=== PATIENT | male | born 1985 | race Hispanic/Latino ===

== ENCOUNTER → 2023-09-13 09:49 | Outpatient (REF) | payer OTHER, SELFPAY ==
[2023-09-13 10:54] LABS: % Eosinophils 2.7 % (0-6); % Immature Granulocytes 0.3 % (0-0.5); % Monocytes 8.4 % (1.7-9.3); % Neutrophils 47.6 % (42.2-75.2); Absolute Basophils 0.1 10^3/uL (0-0.2); Absolute Eosinophils 0.2 10^3/uL (0-0.7); Absolute Lymphocytes 2.3 10^3/uL (1.2-3.4); Absolute Monocytes 0.5 10^3/uL (0.1-0.6); Absolute Neutrophils 2.8 10^3/uL (1.4-6.5); Hematocrit 43.9 % (39.0-52.0); Mean Corp Hgb Conc. 36.4 g/dL (33.0-37.0); Mean Corpuscular Hgb 31.3 pg (27.0-31.0); Mean Corpuscular Volume 85.9 fL (80.0-94.0); Mean Platelet Volume 9.8 fL (7.4-10.4); Nucleated Red Blood Cells % 0 % (-); Platelet Count 220 10^3/uL (130-400); Red Blood Cell Count 5.11 10^6/uL (4.70-6.10); White Blood Cell Count 5.9 10^3/uL (4.8-10.8)
[2023-09-13 12:08] LABS: ALT (SGPT) 59 U/L (0-50); AST (SGOT) 39 U/L (17-59); Albumin 4.8 g/dl (3.5-5.0); Alkaline Phosphatase 76 U/L (38-126); Blood Urea Nitrogen 12 mg/dl (9-20); Calcium 9.4 mg/dl (8.4-10.2); Carbon Dioxide 25 mmol/L (22-30); Chloride 104 mmol/L (98-107); Glucose 91 mg/dl (70-99); Potassium 4.6 mmol/L (3.5-5.1); Sodium 138 mmol/L (135-145); Total Bilirubin 1.4 mg/dl (0.2-1.3); Total Protein 7.8 g/dl (6.3-8.2); eGFR > 60.00
[2023-09-13 13:14] LABS: Glycohemoglobin (HgbA1c) 5.7 % (4.0-5.6)
== END ==
LOC: REG 09:49
PROVIDERS: ATTENDING PHYSICIAN Internal Medicine
DX: K62.5 Hemorrhage of anus and rectum (principal); R73.03 Prediabetes
CPT/HCPCS: 36415; 80053; 83036; 85025

== ENCOUNTER 2023-10-26 20:01 | Emergency (ER) | payer SELFPAY ==
[2023-10-26 20:03] VITALS: BP 137/93
--- NOTE | 2023-10-26 20:24 | ED.GENMED ---
History of Present Illness
General
Chief Complaint: Skin Problem
Source: patient and spouse
Exam Limitations: none
Time Seen by Provider: 10/26/23 20:11
Nursing documentation reviewed up to this point in time: agreed with
History of Present Illness
History of Present Illness:
38-year-old male with no reported chronic medical issues who presents to the emergency room for evaluation of a rash. Patient reports that he started with a rash on his left lower leg about 2 months ago�he says primarily red and pruritic and
raised. He says that he has been following at the [facility] and was seen and prescribed topical triamcinolone cream which he has been using without improvement. He says it seems to be more red and painful recently. He also has
developed a similar area on the left forearm that is pruritic and raised. Decided to come to the emergency room to be evaluated. 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 He denies any oral lesions or sores. No fevers or
chills. Denies any other complaints.
Past History
Past History
ED Past Medical History: None
ED Past Surgical History: None
Social History
Tobacco: Non-smoker
Alcohol: Occasional
Personal:
Living: with family
Employment: Employed
Family History
Family History: Other
Review of Systems
Review of Systems
All Other Systems: ROS reviewed and negative except as documented in HPI and ROS
Constitutional: Denies fever or chills
Skin: Reports itching and rash
Phy Exam
Physical Exam
Physical Exam:
General: Well appearing and non-toxic
HEENT: protecting airway; no mucous membrane lesions
Neck: appears supple
CV: No evidence of cyanosis
Resp: No accessory muscle use
Abd: Non-distended
Extremities: No deformities
Neuro: Alert
Psych: Normal affect
Skin: Patient has a small patch of scattered pustules vaguely linear appearance on the left lower leg raised somewhat scaly with no warmth or tenderness; he has another area of scattered erythematous nodules on the left forearm again linear
appearing but no pustules or vesicles noted; he has a dry scaly skin colored rash on the posterior right thigh which is not erythematous or tender to the touch
Scores
Heart Failure Risk
Heart Failure Risk Score: Not Applicable
Heart Score for Chest Pain Patients
STEMI patient?: Not applicable
Withdrawal Assessment of Alcohol
Withdrawal Assessment Completed?: Not applicable
Course
Orders/Labs/Results
Orders:
Orders
10/26/23 20:21
Cephalexin Monohydrate [Keflex] 500 mg PO NOW STA
Prednisone [Deltasone] 50 mg PO NOW STA
Vital Signs
Initial and Last Documented VS:
Initial Vital Signs
Temp Pulse Resp BP Pulse Ox
37.0 C 75 18 137/93 96
10/26/23 20:03 10/26/23 20:03 10/26/23 20:03 10/26/23 20:03 10/26/23 20:03
Last Documented Vital Signs
Temp Pulse Resp BP Pulse Ox
37.0 C 75 18 137/93 96
10/26/23 20:03 10/26/23 20:03 10/26/23 20:03 10/26/23 20:03 10/26/23 20:03
MDM/Problems Addressed
Differential Diagnosis Includes:
Poison gui, atopic dermatitis/eczema, cellulitis
MDM/Problems Addressed:
38-year-old male presents for evaluation of rash on the left leg, right thigh, left forearm. Has been ongoing for the past 2 months on the left leg not improving with triamcinolone and now developing additional lesions. He does work as a
service writer advisor. Exam as above. Suspect likely contact dermatitis possibly poison gui versus atopic dermatitis. He does report that the area on his left lower leg is somewhat painful recently and it is more erythematous than the rest certainly could
have superimposed cellulitis. Will cover with Keflex but plan to treat with oral steroid taper. Will have him follow-up as an outpatient in [facility]; advised to seek dermatologic referral via clinic if not improving. All questions
answered.
*Pulse Oximetry
Patient hypoxic: no
*Critical Care Note
Total Time (30-74mins, 75-104mins- exclusive of procedures): Not Applicable
Data Reviewed
Source: patient and spouse
ED Attending Note
-
Portions of this chart may have been created with voice recognition software.� Occasional wrong word or��sound alike� substitutions may have occurred due to the inherent limitations of voice recognition software.
Discharge Plan
Departure
Patient Disposition: Home (Routine Discharge)
Date of Disposition: 10/26/23
Time of Disposition: 20:22
Patient with high blood pressure during this ER visit?: No
Discharge Problem:
Dermatitis
Instructions: Skin Rash ED
Prescriptions:
New
cephalexin 500 mg tablet
500 mg PO QID 7 Days Qty: 28 0RF
prednisone 10 mg Tablet
See Rx Instructions .ROUTE .COMPLEX Qty: 30 0RF
Rx Instructions:
Take By Mouth:
40 mg daily x3 days, 30 mg daily x3 days,
20 mg daily x3 days, 10 mg daily x3 days.
No Action
tamsulosin 0.4 MG capsule
0.4 mg PO DAILY Qty: 7 0RF
diclofenac sodium 75 MG tablet,delayed release (DR/EC)
75 mg PO BID Qty: 10 0RF
Activity Restrictions/Additional Instructions:
Thank you for visiting the Emergency Department at [facility].
1. Please schedule a follow up appointment as directed. Call first thing tomorrow morning to make an appointment.
2. If indicated, please take your medications as instructed and indicated on discharge paperwork.
3. If any of your symptoms do not improve, or persist, or become more severe within 6-12 hours, please return to the emergency department for further care.
4. Please return to the emergency department if you develop a headache, neck pain/stiffness, fever greater than 100.4F, chest pain, shortness of breath, persistent nausea, vomiting, slurred speech, difficulty walking, numbness/tingling, weakness,
signs of infection or any other symptoms that are worrisome to you.
Please call [phone] if you have any questions.
Interventions
Interventions:
*Risk Screen - Suicide Last Done: 10/26/23 20:03
*General Assessment Last Done: 10/26/23 20:03
*Neglect/Abuse Screening Last Done: 10/26/23 20:03
Discharge Date and Time
Print Language: KAZAKH
[2023-10-26] MEDS: DELTASONE 50 MG PO (20:31)
[2023-10-26] MEDS: KEFLEX 500 MG PO (20:31)
== END 2023-10-26 20:42 | disposition home or self-care (01) ==
LOC: EMR 20:01
PROVIDERS: EMERGENCY PHYSICIAN Emergency Medicine
DX: L30.9 Dermatitis, unspecified (principal)
CPT/HCPCS: 99283

== ENCOUNTER 2023-12-19 16:16 | Emergency (ER) | payer SELFPAY ==
[2023-12-19 16:17] VITALS: BP 129/92
--- NOTE | 2023-12-19 16:59 | ED.MUSCINJ ---
HPI-Injury
General
Chief Complaint: Extremity Pain (non-traumatic)
Source: patient
Exam Limitations: none
Time Seen by Provider: 12/19/23 16:48
Nursing documentation reviewed up to this point in time: agreed with
History of Present Illness-Injury
Is this injury a work related problem?: No
Is pt an associate of [facility]/[place]?: No
Initial Injury comments:
Rolled ankle falling down steps. Denies hitting his head. No LOC. COmplains of pain to right lat ankle. Injury occurred just study specialist
Past History
Past History
ED Past Medical History: None
ED Past Surgical History: None
Social History
Tobacco: Non-smoker
Alcohol: Occasional
Personal:
Living: with family
Employment: Employed
Family History
Family History: Other
Review of Systems
Review of Systems
Allergies reviewed?: Yes
All Other Systems: ROS reviewed and negative except as documented in HPI and ROS
Constitutional: Reports no symptoms
Musculoskeletal: Reports joint pain (pain to right lat ankle)
Skin: Reports no symptoms
Neurological: Reports no symptoms
Psychiatric: Reports no symptoms
Musculoskeletal Injury Exam
Musculoskeletal Injury Exam
Right Lateral Ankle:
Pain with Movement?: Moderate
Tender to palpation?: Moderate
Soft tissue swelling?: Moderate
External deformity and angulation?: None
Joint effusion?: None
Contusion?: Moderate
Hematoma-local bleeding into tissue?: None
Strain- Sprain- Tear (Connective tissue injury)?: Moderate
Crepitus with movement?: No
Joint instability?: No
Malalignment/deformity?: No
Range of motion: Limited
Distal skin color and temperature: normal-warm & good color
Capillary Refill: normal
Normal distal neurovascular exam?: Yes
Peripheral Pulses: posterior tibial (right): 3+ and dorsalis pedis (right): 3+
Phy Exam
General Physical Exam
General Presentation: well appearing and no apparent distress
General age: appears stated age
General Skin: warm and dry
General Habitus: normal
General Mental: alert
General Hydration: appears well hydrated
Musculoskeletal Exam
Musculoskeletal Exam: neuro vasc intact and other (Achilles intact. No tenderness base of 5th, proximal tib/fib)
Skin Exam
Skin Exam: normal color and warm/dry
Psychiatric Exam
Psychiatric Exam: normal mood/affect
Injury Course
Orders/Labs/Results
Orders:
Orders
12/19/23 16:16
Ankle, Right 3 view CR [CR Ankle - Right Min 3 Views *] Urgent
Comment:
Reason For Exam: pain
12/19/23 16:54
Crutches-Treatment ONCE
Ortho Boot Right- Treatment ONCE
Short or tall?: Tall
Hydrocodone 5/APAP 325 [[place] 5/325] 1 tablet PO NOW STA
*Radiology
Radiology exam reviewed: radiology read reviewed
*Pulse Oximetry
Patient hypoxic: no
*Critical Care Note
Total Time (30-74mins, 75-104mins- exclusive of procedures): Not Applicable
ED Attending Note
-
Portions of this chart may have been created with voice recognition software.� Occasional wrong word or��sound alike� substitutions may have occurred due to the inherent limitations of voice recognition software.
Discharge Plan
Departure
Patient Disposition: Home (Routine Discharge)
Date of Disposition: 12/19/23
Time of Disposition: 16:55
Patient with high blood pressure during this ER visit?: No
Condition: Good
Covid-19: Not Applicable
Discharge Problem:
Ankle fracture
Instructions: Ankle Fracture ED
Prescriptions:
New
hydrocodone-acetaminophen 5-325 mg tablet
1 tab PO Q4H PRN (Reason: Pain) Qty: 10 0RF
No Action
tamsulosin 0.4 MG capsule
0.4 mg PO DAILY Qty: 7 0RF
diclofenac sodium 75 MG tablet,delayed release (DR/EC)
75 mg PO BID Qty: 10 0RF
cephalexin 500 mg tablet
500 mg PO QID 7 Days Qty: 28 0RF
prednisone 10 mg Tablet
See Rx Instructions .ROUTE .COMPLEX Qty: 30 0RF
Rx Instructions:
Take By Mouth:
40 mg daily x3 days, 30 mg daily x3 days,
20 mg daily x3 days, 10 mg daily x3 days.
Referrals:
[facility] [Outside] - Tomorrow
Mata Campos MD [Active] -
Activity Restrictions/Additional Instructions:
Follow up with the [facility] for referral to orthopedic provider. You will need to see the orthopedist this week.
Interventions
Interventions:
*Risk Screen - Suicide Last Done: 12/19/23 16:17
*General Assessment Last Done: 12/19/23 16:17
*Neglect/Abuse Screening Last Done: 12/19/23 17:24
ED- Fall Risk Assessment Last Done: 12/19/23 16:17
*ED COVID-19 Vaccine History Last Done: 12/19/23 16:17
*Nursing Disposition Last Done: 12/19/23 17:24
ED-Skin Assessment Last Done: 12/19/23 16:41
ED-Musculoskeletal Assessment Last Done: 12/19/23 16:41
Discharge Date and Time
Discharge Date/Time: 12/19/23 17:26
Print Language: URDU
[2023-12-19] MEDS: NORCO 5/325 1 TABLET PO (17:18)
[2023-12-19 17:24] VITALS: BP 144/80
== END 2023-12-19 17:26 | disposition home or self-care (01) ==
LOC: EMR 16:16
PROVIDERS: EMERGENCY PHYSICIAN Emergency Medicine; FAMILY PHYSICIAN Nurse Practitioner Adult Health
DX: S82.891A Other fracture of right lower leg, initial encounter for closed fracture (principal); W10.9XXA Fall (on) (from) unspecified stairs and steps, initial encounter
CPT/HCPCS: 99283; 73610

== ENCOUNTER 2023-12-31 06:25 | Day surgery (SDC) | payer OTHER, SELFPAY ==
[2023-12-31] VITALS (10 sets, daily range): BP systolic 115–140; BP diastolic 72–94; BMI 31.0
[2023-12-31] MEDS: TYLENOL 1000 MG PO (10:10)
[2023-12-31] MEDS: CELEBREX 200 MG PO (10:10)
[2023-12-31] MEDS: NORMOSOL-R/PLASMALYTE-A 1000 IV (10:21)
[2023-12-31] MEDS: DILAUDID 0.5 MG IV ×2 (14:37→14:50)
[2023-12-31] MEDS: ROXICODONE 5 MG PO (16:26)
== END 2023-12-31 16:45 | disposition home or self-care (01) ==
LOC: SDS 06:25
PROVIDERS: ATTENDING PHYSICIAN Student in an Organized Health Care Education/Training Program; FAMILY PHYSICIAN Internal Medicine
PROC: 0QSG04Z Reposition Right Tibia with Internal Fixation Device, Open Approach (ICD-10-PCS; 2023-12-31)
PROC: 0QSJ04Z Reposition Right Fibula with Internal Fixation Device, Open Approach (ICD-10-PCS; 2023-12-31)
DX: S82.841A Displaced bimalleolar fracture of right lower leg, initial encounter for closed fracture (principal); X58.XXXA Exposure to other specified factors, initial encounter
CPT/HCPCS: 27814; 73610; 76000; C1713

== ENCOUNTER 2024-03-04 17:07 | Outpatient (RCR) | payer OTHER, SELFPAY | END 2024-03-04 23:59 | disposition home or self-care (01) | LOC: RPT 17:07 | PROVIDERS: ATTENDING PHYSICIAN Student in an Organized Health Care Education/Training Program; FAMILY PHYSICIAN Nurse Practitioner Adult Health | DX: S82.831D Other fracture of upper and lower end of right fibula, subsequent encounter for closed fracture with routine healing (principal); Z73.6 Limitation of activities due to disability | CPT/HCPCS: 97010; 97110; 97112; 97140; 97161 ==

== ENCOUNTER 2024-03-27 17:10 | Outpatient (RCR) | payer OTHER, SELFPAY | END 2024-03-27 23:59 | disposition home or self-care (01) | LOC: RPT 17:10 | PROVIDERS: ATTENDING PHYSICIAN Student in an Organized Health Care Education/Training Program; FAMILY PHYSICIAN Nurse Practitioner Adult Health | DX: S82.831D Other fracture of upper and lower end of right fibula, subsequent encounter for closed fracture with routine healing (principal); Z73.6 Limitation of activities due to disability | CPT/HCPCS: 97010; 97110; 97112; 97140 ==

== ENCOUNTER 2024-05-08 16:51 | Outpatient (RCR) | payer OTHER, SELFPAY | END 2024-05-08 23:59 | disposition home or self-care (01) | LOC: RPT 16:51 | PROVIDERS: ATTENDING PHYSICIAN Student in an Organized Health Care Education/Training Program; FAMILY PHYSICIAN Nurse Practitioner Adult Health | DX: S82.831D Other fracture of upper and lower end of right fibula, subsequent encounter for closed fracture with routine healing (principal); Z73.6 Limitation of activities due to disability | CPT/HCPCS: 97110; 97112; 97140 ==

== ENCOUNTER → 2024-06-05 06:43 | Outpatient (REF) | payer OTHER, SELFPAY | LOC: PAVMRI 06:43 | PROVIDERS: ATTENDING PHYSICIAN Student in an Organized Health Care Education/Training Program; FAMILY PHYSICIAN Nurse Practitioner Adult Health | DX: M25.571 Pain in right ankle and joints of right foot (principal) | CPT/HCPCS: 73721 ==

== ENCOUNTER 2024-06-05 17:13 | Outpatient (RCR) | payer OTHER, SELFPAY | END 2024-06-05 23:59 | disposition home or self-care (01) | LOC: RPT 17:13 | PROVIDERS: ATTENDING PHYSICIAN Student in an Organized Health Care Education/Training Program; FAMILY PHYSICIAN Nurse Practitioner Adult Health | DX: S82.831D Other fracture of upper and lower end of right fibula, subsequent encounter for closed fracture with routine healing (principal); X58.XXXD Exposure to other specified factors, subsequent encounter; Z73.6 Limitation of activities due to disability | CPT/HCPCS: 97110; 97112 ==

== ENCOUNTER 2024-07-03 18:52 | Outpatient (RCR) | payer OTHER, SELFPAY | END 2024-07-03 23:59 | disposition home or self-care (01) | LOC: RPT 18:52 | PROVIDERS: ATTENDING PHYSICIAN Student in an Organized Health Care Education/Training Program; FAMILY PHYSICIAN Nurse Practitioner Adult Health | DX: S82.831D Other fracture of upper and lower end of right fibula, subsequent encounter for closed fracture with routine healing (principal); X58.XXXD Exposure to other specified factors, subsequent encounter; Z73.6 Limitation of activities due to disability; R26.2 Difficulty in walking, not elsewhere classified; M62.81 Muscle weakness (generalized) | CPT/HCPCS: 97110; 97112 ==

== ENCOUNTER 2024-08-28 17:00 | Outpatient (RCR) | payer OTHER, SELFPAY | END 2024-08-28 23:59 | disposition home or self-care (01) | LOC: RPT 17:00 | PROVIDERS: ATTENDING PHYSICIAN Student in an Organized Health Care Education/Training Program; FAMILY PHYSICIAN Nurse Practitioner Adult Health | DX: Z47.89 Encounter for other orthopedic aftercare (principal); S82.831D Other fracture of upper and lower end of right fibula, subsequent encounter for closed fracture with routine healing; X58.XXXD Exposure to other specified factors, subsequent encounter; Z73.6 Limitation of activities due to disability; R26.2 Difficulty in walking, not elsewhere classified; M62.81 Muscle weakness (generalized) | CPT/HCPCS: 97010; 97110; 97112; 97140 ==

== ENCOUNTER 2024-09-10 18:57 | Outpatient (RCR) | payer OTHER, SELFPAY | END 2024-09-10 23:59 | disposition home or self-care (01) | LOC: RPT 18:57 | PROVIDERS: ATTENDING PHYSICIAN Student in an Organized Health Care Education/Training Program; FAMILY PHYSICIAN Nurse Practitioner Adult Health | DX: S82.831D Other fracture of upper and lower end of right fibula, subsequent encounter for closed fracture with routine healing (principal); X58.XXXD Exposure to other specified factors, subsequent encounter; Z73.6 Limitation of activities due to disability; R26.2 Difficulty in walking, not elsewhere classified; M62.81 Muscle weakness (generalized); Z47.89 Encounter for other orthopedic aftercare | CPT/HCPCS: 97110; 97112; 97140 ==

== ENCOUNTER 2024-09-25 11:59 | Emergency (ER) | payer SELFPAY ==
[2024-09-25 12:04] VITALS: BP 136/91
[2024-09-25 12:28] VITALS: BMI 37.0
--- NOTE | 2024-09-25 13:20 | ED.GENMED ---
History of Present Illness
General
Chief Complaint: Back Pain
Source: patient
Exam Limitations: none
Time Seen by Provider: 09/25/24 12:27
Nursing documentation reviewed up to this point in time: agreed with
History of Present Illness
History of Present Illness:
The patient is a 39-year-old male with a known history of kidney stones, presenting with abdominal pain. The pain began last night around 1 AM and radiates from one area to another. The patient describes the pain as severe, rated 10/10, and reports
associated diarrhea that began the same night. The patient denies numbness, weakness, nausea, or vomiting. The pain is similar to previous episodes of kidney stones. Ibuprofen was taken for pain relief, without significant improvement.
Past History
Past History
ED Past Medical History: None
ED Past Surgical History: None
Social History
Tobacco: Non-smoker
Alcohol: Occasional
Personal:
Living: with family
Employment: Employed
Family History
Family History: Other
Review of Systems
Review of Systems
Allergies reviewed?: Yes
All Other Systems: ROS reviewed and negative except as documented in HPI and ROS
Phy Exam
Physical Exam
Physical Exam:
GENERAL: Alert , in no apparent distress
EYE: pupils equal and reactive
NECK: Supple, no significant adenopathy.
ENT: o/p clr, mmm.
CARDIAC: Regular rate and rhythm .
LUNGS: Clear breath sounds bilaterally, no acute respiratory distress, no wheezes/rales/rhonchi
ABDOMEN: Soft, without focal tenderness, no r/g, no cvat
NEUROLOGICAL: Alert and oriented, no focal neuro deficits
SKIN: Warm and dry, skin intact.
MUSCULOSKELETAL: No edema, well perfused.
PSYCH: Normal and appropriate interaction.
Course
Orders/Labs/Results
Orders:
Orders
09/25/24 13:05
0.9% Sodium Chloride 1000 ml [Nss] 1,000 ml IV BOLUS
Ketorolac [Toradol] 15 mg IV NOW STA
09/25/24 13:06
CT Abd/pel Without Iv Or Oral Urgent
Comment:
Reason For Exam: left flank pain
09/25/24 13:30
Complete Blood Count/With Diff Urgent
Comprehensive Metabolic Panel Urgent
Urinalysis Reflex To Culture Urgent
Date Specimen was Collected: 09/25/24
Time Specimen was Collected: 13:24
Urine Microscopic Reflex Cult Urgent
09/25/24 15:46
Ketorolac [Toradol] 15 mg IV NOW STA
Tamsulosin [Flomax] 0.4 mg PO NOW STA
Abnormal Lab Results
09/25/24
13:30
MCH 31.5 H pg
(27.0-31.0)
Absolute Monos (auto) 0.7 H 10^3/uL
(0.1-0.6)
Monocytes % 10.4 H %
(1.7-9.3)
Glucose 119 H mg/dl
(70-99)
Total Bilirubin 2.0 H mg/dl
(0.2-1.3)
ALT 72 H U/L
(0-50)
Ur Occult Blood Reflex 1+ A
(Negative)
09/25/24 13:30
09/25/24 13:30
Vital Signs
Initial and Last Documented VS:
Initial Vital Signs
Temp Pulse Resp BP Pulse Ox
98.1 F 70 15 136/91 98
09/25/24 12:04 09/25/24 12:04 09/25/24 12:04 09/25/24 12:04 09/25/24 12:04
Last Documented Vital Signs
Temp Pulse Resp BP Pulse Ox
98.1 F 70 15 136/91 98
09/25/24 12:04 09/25/24 12:04 09/25/24 12:04 09/25/24 12:04 09/25/24 13:20
MDM/Problems Addressed
MDM/Problems Addressed:
The plan includes obtaining a CT scan to evaluate for kidney stones and ordering laboratory tests, including urinalysis. Pain management with medication will be administered to provide relief. Patient symptoms significantly proved after given
Toradol. Patient very comfortable here no vomiting. Labs without emergent findings normal renal function urinalysis without signs of infection. CT scan showing 6 mm proximal stone minimal hydro. Patient appears well for trial of passage given
information for urology follow-up and return precautions given.
*Pulse Oximetry
SaO2: 98
Oxygen Mode of Delivery: Room air
*Critical Care Note
Total Time (30-74mins, 75-104mins- exclusive of procedures): Not Applicable
ED Attending Note
-
Portions of this chart may have been created with voice recognition software.� Occasional wrong word or��sound alike� substitutions may have occurred due to the inherent limitations of voice recognition software.
Discharge Plan
Departure
Patient Disposition: Home (Routine Discharge)
Date of Disposition: 09/25/24
Time of Disposition: 15:55
Patient with high blood pressure during this ER visit?: No
Condition: Good
Covid-19: Not Applicable
Discharge Problem:
Calculus, ureteral
Instructions: Kidney stones in adults - ED discharge instructions
Prescriptions:
New
naproxen 500 mg tablet
500 mg PO BID PRN (Reason: Pain) Qty: 10 0RF
ondansetron 4 mg tablet,disintegrating
4 mg PO Q6H PRN (Reason: nausea and vomiting) Qty: 7 0RF
tamsulosin [Flomax] 0.4 mg capsule
0.4 mg PO HS Qty: 7 0RF
No Action
hydrocodone-acetaminophen 5-325 mg tablet
1 tab PO Q4H PRN (Reason: Pain) Qty: 10 0RF
Referrals:
Lukas Regan MD [Family Provider, Family Practice]
Daryn Mccarty MD [Active, Urology] - Follow up in 5-7 days
Activity Restrictions/Additional Instructions:
You came to the emergency department today with concerns of flank pain. You are found to have a kidney stone that is now in your ureter causing your symptoms. Please drink plenty of fluids and take the prescribed medications to help with passage.
Please urinate into a strainer to collect the stone. Please follow closely with urology within 1 week. Return for any worsening, new or concerning symptoms.
Interventions
Interventions:
*Risk Screen - Suicide Last Done: 09/25/24 12:04
*General Assessment Last Done: 09/25/24 12:04
*Neglect/Abuse Screening Last Done: 09/25/24 12:04
*ED COVID-19 Vaccine History Last Done: 09/25/24 12:04
ED-Musculoskeletal Assessment Last Done: 09/25/24 13:41
Discharge Date and Time
Print Language: UZBEK
[2024-09-25] MEDS: TORADOL 15 MG IV ×2 (13:36→15:55)
[2024-09-25] MEDS: NSS 1000 IV (13:36)
[2024-09-25 13:48] LABS: % Basophils 0.9 % (0-2); % Eosinophils 1.3 % (0-6); % Immature Granulocytes 0.4 % (0-0.5); % Monocytes 10.4 % (1.7-9.3); Absolute Basophils 0.1 10^3/uL (0-0.2); Absolute Eosinophils 0.1 10^3/uL (0-0.7); Absolute Lymphocytes 2.3 10^3/uL (1.2-3.4); Absolute Monocytes 0.7 10^3/uL (0.1-0.6); Absolute Neutrophils 3.9 10^3/uL (1.4-6.5); Hematocrit 41.9 % (39.0-52.0); Hemoglobin 15.4 g/dL (13.0-18.0); Mean Corp Hgb Conc. 36.8 g/dL (33.0-37.0); Mean Corpuscular Hgb 31.5 pg (27.0-31.0); Mean Corpuscular Volume 85.7 fL (80.0-94.0); Mean Platelet Volume 10.2 fL (7.4-10.4); Nucleated Red Blood Cells % 0 % (-); Platelet Count 192 10^3/uL (130-400); Red Blood Cell Count 4.89 10^6/uL (4.70-6.10); Red Cell Dist. Width 12.7 % (11.5-14.5)
[2024-09-25 13:56] LABS: Urine Albumin Negative (Neg - Trace); Urine Bilirubin Negative (Negative); Urine Character Clear (Clear); Urine Color Yellow; Urine Glucose Negative (Negative); Urine Ketone Negative (Negative); Urine Leukocyte Negative (Negative); Urine Nitrite Negative (Negative); Urine Occult Blood 1+ (Negative); Urine Specific Gravity 1.005 (<1.030); Urine Urobilinogen Negative (Neg - 1+); Urine pH 6.5 (5.0-9.0)
[2024-09-25 14:09] LABS: ALT (SGPT) 72 U/L (0-50); AST (SGOT) 40 U/L (17-59); Albumin 4.6 g/dl (3.5-5.0); Alkaline Phosphatase 61 U/L (38-126); Blood Urea Nitrogen 13 mg/dl (9-20); Calcium 9.4 mg/dl (8.4-10.2); Carbon Dioxide 22 mmol/L (22-30); Chloride 105 mmol/L (98-107); Estimated Creatinine Clearance > 125 ml/min; Glucose 119 mg/dl (70-99); Potassium 4.1 mmol/L (3.5-5.1); Sodium 135 mmol/L (135-145); Total Protein 7.3 g/dl (6.3-8.2); eGFR > 60.00
[2024-09-25 14:36] LABS: Urine Amorphous Seen
[2024-09-25 14:38] LABS: Urine Red Blood Cell 0-2 /HPF (0-2); Urine White Cell 0-2 /HPF (0-5)
[2024-09-25] MEDS: FLOMAX 0.4 MG PO (15:54)
== END 2024-09-25 16:07 | disposition home or self-care (01) ==
LOC: EMR 11:59
PROVIDERS: Physician Assistant; EMERGENCY PHYSICIAN Emergency Medicine; FAMILY PHYSICIAN Family Medicine
DX: R10.9 Unspecified abdominal pain (principal); N13.2 Hydronephrosis with renal and ureteral calculous obstruction; Z87.442 Personal history of urinary calculi
CPT/HCPCS: 99284; 96374; 96376; 96361; 74176; 80053; 81003; 81015; 85025

== ENCOUNTER 2024-09-26 15:23 | Inpatient (IN) | payer OTHER, SELFPAY ==
[2024-09-26 12:59] VITALS: BP 130/83
[2024-09-26 13:15] LABS: Urine Albumin Negative (Neg - Trace); Urine Bilirubin Negative (Negative); Urine Character Clear (Clear); Urine Color Yellow; Urine Glucose Negative (Negative); Urine Ketone Negative (Negative); Urine Leukocyte Negative (Negative); Urine Nitrite Negative (Negative); Urine Occult Blood 3+ (Negative); Urine Urobilinogen Negative (Neg - 1+)
--- NOTE | 2024-09-26 13:30 | EDRN ---
Pt ambulated to BR and used strainer when voiding.
[2024-09-26 13:43] VITALS: BMI 30.6
--- NOTE | 2024-09-26 13:47 | EDRN ---
Pt to BR again at this time. Pt states no nausea now but did have nausea this am.
[2024-09-26 13:55] LABS: Urine Red Blood Cell 0-2 /HPF (0-2); Urine Squamous Cell 0-2 /LPF (Few); Urine White Cell 0-2 /HPF (0-5)
--- NOTE | 2024-09-26 13:59 | ED.GENMED ---
History of Present Illness
General
Chief Complaint: Flank Pain
Time Seen by Provider: 09/26/24 13:49
History of Present Illness
History of Present Illness:
39-year-old male with history of kidney stones presenting to the emergency department with persistent left-sided abdominal pain. Patient was seen yesterday, diagnosed with a 6 mm proximal left ureteral stone. Patient was sent home with pain
medication, however notes that his pain is not improving, nausea. Notes history of kidney stones in the past, have passed on their own. Denies any significant urinary complaints or hematuria. Denies chest pain or difficulty breathing. Notes some
chills, denies fever. Denies additional acute medical complaints.
Past History
Past History
ED Past Medical History: None
ED Past Surgical History: None
Social History
Tobacco: Non-smoker
Alcohol: Occasional
Personal:
Living: with family
Employment: Employed
Family History
Family History: Other
Phy Exam
Physical Exam
Physical Exam:
General: Well-appearing, no clinical signs of dehydration, nontoxic and in no acute distress
HEENT: protecting airway
Neck: appears supple
CV: Normal heart rate, regular rhythm
Resp: No accessory muscle use, no increased work of breathing, lungs clear to auscultation bilaterally
Abd: Soft and non-distended, mild tenderness to the left lower quadrant without rebound or guarding
Extremities: No deformities, no swelling
Neuro: alert, no focal neurologic deficit
: deferred
Rectal: deferred
Psych: Normal affect
Skin: Intact
Course
Orders/Labs/Results
Orders:
Orders
09/26/24 13:04
UA Reflex to Culture [Urinalysis Reflex To Culture] Urgent
Date Specimen was Collected: 09/26/24
Time Specimen was Collected: 13:03
Urine Microscopic Reflex Cult Urgent
09/26/24 13:54
IV Insert/Care/Rem.- Treatment PRN
09/26/24 13:55
Complete Blood Count/With Diff Urgent
Comprehensive Metabolic Panel Urgent
09/26/24 14:05
0.9% Sodium Chloride 1000 ml [Nss] 1,000 ml IV BOLUS
Morphine Sulfate 4 mg IV NOW STA
Ondansetron Injectable [Zofran] 4 mg IV NOW STA
09/26/24 14:46
Urine Culture Urgent
CHERYL Source: Urine
Specimen Description:
CefTRIAXone [Rocephin] 1,000 mg IV NOW STA
09/26/24 15:00
Blood Culture Q30M
CHERYL Source: Blood/Venous
Specimen Description:
09/26/24 15:30
Blood Culture Q30M
CHERYL Source: Blood/Venous
Specimen Description:
Abnormal Lab Results
09/26/24 09/26/24
13:04 13:55
WBC 10.9 H 10^3/uL
(4.8-10.8)
Absolute Neuts (auto) 8.3 H 10^3/uL
(1.4-6.5)
Absolute Monos (auto) 1.1 H 10^3/uL
(0.1-0.6)
Neutrophils % 76.0 H %
(42.2-75.2)
Lymphocytes % 12.6 L %
(20.5-51.1)
Monocytes % 10.2 H %
(1.7-9.3)
Sodium 133 L mmol/L
(135-145)
Total Bilirubin 3.2 H D mg/dl
(0.2-1.3)
ALT 63 H U/L
(0-50)
Ur Occult Blood Reflex 3+ A
(Negative)
09/26/24 13:55
09/26/24 13:55
Vital Signs
Initial and Last Documented VS:
Initial Vital Signs
Temp Pulse Resp BP Pulse Ox
99.5 F 90 20 130/83 96
09/26/24 12:59 09/26/24 12:59 09/26/24 12:59 09/26/24 12:59 09/26/24 12:59
Last Documented Vital Signs
Temp Pulse Resp BP Pulse Ox
99 F 90 20 130/83 96
09/26/24 14:05 09/26/24 12:59 09/26/24 12:59 09/26/24 12:59 09/26/24 14:20
MDM/Problems Addressed
MDM/Problems Addressed:
39-year-old male with past medical history of kidney stones presenting to the emergency department for left-sided abdominal pain with known kidney stone. Vital signs on arrival are normal.
On exam patient resting comfortably, no acute distress or discomfort. Benign cardiac and pulmonary exam. On abdominal exam, focal tenderness to the left lower quadrant without rebound or guarding. On review of EMR from patient's visit yesterday,
noted to have a 6 mm stone at the proximal left ureter. Suspect this to be etiology of pain. Will repeat laboratory analysis to ensure no worsening renal function or increasing leukocytosis. Will discuss with urology. Will keep patient
comfortable with IV fluids, morphine, Zofran
14:50 -patient's labs do show elevation of WBC at 10.9, increased yesterday from 7.0. Urine without significant sign of infection. Did discuss with urology, recommending n.p.o. and cultures, start empiric antibiotics and admission for potential
stent placement.
*Pulse Oximetry
SaO2: 96
Oxygen Mode of Delivery: Room air
*Critical Care Note
Total Time (30-74mins, 75-104mins- exclusive of procedures): Not Applicable
ED Attending Note
-
Portions of this chart may have been created with voice recognition software.� Occasional wrong word or��sound alike� substitutions may have occurred due to the inherent limitations of voice recognition software.
Discharge Plan
Departure
Prescriptions:
No Action
hydrocodone-acetaminophen 5-325 mg tablet
1 tab PO Q4H PRN (Reason: Pain) Qty: 10 0RF
naproxen 500 mg tablet
500 mg PO BID PRN (Reason: Pain) Qty: 10 0RF
ondansetron 4 mg tablet,disintegrating
4 mg PO Q6H PRN (Reason: nausea and vomiting) Qty: 7 0RF
tamsulosin [Flomax] 0.4 mg capsule
0.4 mg PO HS Qty: 7 0RF
Referrals:
NONE,* [Family Provider, Internal Medicine]
Interventions
Interventions:
*Risk Screen - Suicide Last Done: 09/26/24 13:43
*General Assessment Last Done: 09/26/24 13:43
*Neglect/Abuse Screening Last Done: 09/26/24 13:43
*ED- Fall Risk Assessment Last Done: 09/26/24 13:43
*ED COVID-19 Vaccine History Last Done: 09/26/24 13:43
CU-Zccjps-Aueuvapycu Assessment Last Done: 09/26/24 13:43
ED-Male Genitourinary Assessment Last Done: 09/26/24 13:43
Discharge Date and Time
Print Language: CHADIAN
[2024-09-26 14:05] LABS: % Basophils 0.5 % (0-2); % Eosinophils 0.4 % (0-6); % Immature Granulocytes 0.3 % (0-0.5); % Lymphocytes 12.6 % (20.5-51.1); % Monocytes 10.2 % (1.7-9.3); Absolute Basophils 0.1 10^3/uL (0-0.2); Absolute Lymphocytes 1.4 10^3/uL (1.2-3.4); Absolute Monocytes 1.1 10^3/uL (0.1-0.6); Absolute Neutrophils 8.3 10^3/uL (1.4-6.5); Hematocrit 39.8 % (39.0-52.0); Hemoglobin 14.7 g/dL (13.0-18.0); Mean Corp Hgb Conc. 36.9 g/dL (33.0-37.0); Mean Corpuscular Hgb 30.9 pg (27.0-31.0); Mean Corpuscular Volume 83.8 fL (80.0-94.0); Mean Platelet Volume 9.8 fL (7.4-10.4); Nucleated Red Blood Cells % 0 % (-); Platelet Count 185 10^3/uL (130-400); Red Blood Cell Count 4.75 10^6/uL (4.70-6.10); Red Cell Dist. Width 12.6 % (11.5-14.5); White Blood Cell Count 10.9 10^3/uL (4.8-10.8)
[2024-09-26] MEDS: NSS 1000 IV ×2 (14:24→18:05)
[2024-09-26] MEDS: ZOFRAN 4 MG IV (14:24)
[2024-09-26] MEDS: MORPHINE SULFATE 4 MG IV (14:25)
--- NOTE | 2024-09-26 14:27 | EDRN ---
Pt in BR again to void.
[2024-09-26 14:40] LABS: ALT (SGPT) 63 U/L (0-50); AST (SGOT) 30 U/L (17-59); Albumin 4.5 g/dl (3.5-5.0); Alkaline Phosphatase 64 U/L (38-126); Blood Urea Nitrogen 11 mg/dl (9-20); Calcium 9.4 mg/dl (8.4-10.2); Carbon Dioxide 24 mmol/L (22-30); Chloride 102 mmol/L (98-107); Estimated Creatinine Clearance > 125 ml/min; Glucose 96 mg/dl (70-99); Potassium 4.1 mmol/L (3.5-5.1); Sodium 133 mmol/L (135-145); Total Bilirubin 3.2 mg/dl (0.2-1.3); Total Protein 7.2 g/dl (6.3-8.2); eGFR > 60.00
--- NOTE | 2024-09-26 14:59 | HPS.HSE ---
Family Physician
-
Family Physician: * NONE
Chief Complaint
-
left flank pain
History of Present Illness
39-year-old male with no significant past medical history presented to us with left-sided abdominal pain radiating to his back since Sunday night. Patient was evaluated in the ER yesterday. He was diagnosed with a 6 mm proximal left ureteral
stone. Patient was sent home with pain medication, however notes that his pain is not improving. He had an episode of diarrhea and vomiting this morning. He is complaining of headache. Denied fever, chills, chest pain, short of breath. He is
complaining of burning with urination.
Admitting for further management
Medical History
Past Medical History
Past Medical History: Reports None
Past Surgical History: Reports Other
Additional Past Surgical History:
Right ankle surgery
Social History
Tobacco: Other (Occasional smoker)
Alcohol: Occasional
Drug: None
Personal:
Living: With Family
Family History
Family History: Not pertinent
Allergies / Home Medications
Allergies reflects when Allergies were last updated in [employer].
Home Medications with original date entered in [employer]
Allergy/Medication List:
Allergies
Allergy/AdvReac Type Severity Reaction Status Date / Time
No Known Allergies Allergy Verified 09/26/24 12:59
Home Medications
naproxen 500 mg tablet 500 mg PO BIDPRN PRN mild pain 09/26/24
ondansetron 4 mg disintegrating tablet 4 mg PO Q6HPRN PRN nausea and vomiting 09/26/24
tamsulosin 0.4 mg capsule (Flomax) 0.4 mg PO HS Urinary Issue 09/26/24
Review of Systems
-
Constitutional: Reports No Symptoms
EENT: Reports No Symptoms
Respiratory: Reports No Symptoms
Cardiac: Reports No Symptoms
Abdomen/GI: Reports No Symptoms
: Reports Flank Pain and Other (Burning with urination)
Musculoskeletal: Reports No Symptoms
Skin: Reports No Symptoms
Neurological: Reports No Symptoms
Endocrine: Reports No Symptoms
Hematologic/Lymphatic: Reports No Symptoms
Psych: Reports No Symptoms
Physical Exam
Vital Signs
Vital Signs
Temp Pulse Resp BP Pulse Ox
99 F 90 20 130/83 96
09/26/24 14:05 09/26/24 12:59 09/26/24 12:59 09/26/24 12:59 09/26/24 14:20
Physical Exam
General: Well Developed, Well Nourished and No Apparent Distress
HEENT: NormoCephalic, Moist mucous membranes and Atraumatic
Respiratory: Clear
Cardiac: S1/S2 and Regular Rhythm; No Murmur or Rub
GI: Soft, Non Tender, Non Distended and Normal Bowel Sounds; No Organomegaly
Rectal: Deferred by Provider
Genito-urinary: Costovertebral angle tend
Musculoskeletal: No Clubbing, No Cyanosis and No Edema
Skin: No Rash
Neuro: AO x 3 and Nonfocal/grossly intact
Psych: Calm
Laboratory Results
-
09/26/24 13:55
09/26/24 13:55
Laboratory Results
Total Bilirubin 3.2 mg/dl (0.2-1.3) H D 09/26/24 13:55
AST 30 U/L (17-59) 09/26/24 13:55
ALT 63 U/L (0-50) H 09/26/24 13:55
Alkaline Phosphatase 64 U/L (38-126) 09/26/24 13:55
Data Reviewed
-
CT Scan: Report Reviewed by me
Lab Data: Labs Reviewed by me
Impression/Plan
-
#left sided abdominal pain secondary to ureteral stone with mild hydro
-for possible stent in the morning
- Oxy and Dilaudid as needed for pain
- keep patient n.p.o.
- Strain urine
- Urology consulted
- WBC 10.9
-Ct with the impression of 6 mm proximal left ureteral calculus with associated mild left hydroureteronephrosis.Hepatomegaly and diffuse hepatic steatosis.
-oxy, Dilaudid prn for pain
-ceftriaxone continued
# DVT prophy
-SCDs
# CODE STATUS
-Full code
--- NOTE | 2024-09-26 15:10 | EDRN ---
Kirill Grimaldo MEDICAL ADMINISTRATIVE ASSISTANT in to see pt.
--- NOTE | 2024-09-26 15:11 | EDRN ---
Pt again to BR to Void. Pt states that he had diarrhea and vomiting this am but none now. pt has severe pain w/ voiding.
[2024-09-26 15:14] VITALS: BP 160/103
--- NOTE | 2024-09-26 15:18 | W.PN.UPDATE ---
Update Note
Progress Note Update
This note serves as an addendum to the H&P by double needle operator LEONARDA Tori MELGAR
39M HX kidney stones coming in with L-sided pain.
He was seen yesterday, diagnosed with a 6mm L-proximal ureteral stone with mild hydro.
Returns today with worsening pain.
low grade temp at 99.5.
Lt flank pain
Significant Lt CVA tenderness
WBC is 10.9, up from 7.0 yesterday.
Urine looks clean.
Per Urologist Dr Uribe
- UCx, BCx
-Empiric IV CFTX
-IVF
-PRN antiemetics
-NPO - stent in today or tomorrow am per Uro
- DVT px with SCD
-MS floor for admission
Urologist seen and consulted
[2024-09-26] MEDS: ROCEPHIN 1000 MG IV (15:53)
[2024-09-26] MEDS: DILAUDID 0.5 MG IV ×2 (16:10→20:21)
[2024-09-26 16:16] LABS: Lactic Acid 0.9 mmol/L (0.7-2.0)
--- NOTE | 2024-09-26 16:30 | EDRN ---
Dr. Uribe in to see pt and spoke about OR in AM as no signs of infection.
[2024-09-26 16:50] VITALS: BP 116/70
--- NOTE | 2024-09-26 17:16 | W.PN.URO.CBU ---
Today's Communication / Plan
-
op room sat am npo iv abs and iv fluids per hospitalis t
Assessment / Plan
-
prox stone intractable pain for stone tx am but if unstabl;e then tonight
Diagnosis
-
Date of Service: September 26, 2024
-
Patient Diagnosis:left stone failed trial of passage had fever b[now afebrile non toxic
Post Op Day:
Subjective
-
colic no fevr chills or rigors
Objective
-
Vital Signs
Temp Pulse Resp BP Pulse Ox
99.1 F 88 16 116/70 95
09/26/24 16:50 09/26/24 16:50 09/26/24 16:50 09/26/24 16:50 09/26/24 16:50
Laboratory Results
09/26/24 13:55
09/26/24 13:55
Review of Systems
-
: Flank Pain
Physical Exam
-
General - well developed, well nourished, no acute distress
Chest - clear bilaterally
Abdomen - soft, non-tender, positive bowel sounds, no CVAT, no incisional pain or distention
Genitalia - normal
Rectal - normal
Skin - warm & dry with no rash
Neuro - AOx3, no motor deficits
Extremities - no clubbing, no cyanosis, no edema
Incision - clean, dry
Dressing - clean, dry, intact
Care Review
Data Reviewed
Discussed with: Nursing and Family
CT Scan: Image Pers Reviewed
[2024-09-26 17:26] VITALS: BMI 30.3
[2024-09-26 17:27] VITALS: BP 122/83
--- NOTE | 2024-09-26 17:38 | PTCARENOTE ---
Pt received from ED. Walked to 339 bed 2 from ED stretcher. Admission questions and assessment completed by this RN. Pt aaox3, VSS. Pt complains of 6/10 pain in R lower abdomen that he states has improved since dilaudid administration in the ED. POC
discussed with pt. Pt remains NPO at this time. Call murray within reach. POC ongoing.
[2024-09-26] MEDS: FLOMAX 0.4 MG PO (21:33)
[2024-09-26 23:41] VITALS: BP 115/72
[2024-09-27] VITALS (9 sets, daily range): BP systolic 89–131; BP diastolic 55–79
[2024-09-27] MEDS: NSS 1000 IV (04:30)
[2024-09-27] MEDS: DILAUDID 0.5 MG IV (08:17)
[2024-09-27 08:39] LABS: Hematocrit 40.9 % (39.0-52.0); Hemoglobin 14.5 g/dL (13.0-18.0); Mean Corp Hgb Conc. 35.5 g/dL (33.0-37.0); Mean Corpuscular Hgb 31.3 pg (27.0-31.0); Mean Corpuscular Volume 88.1 fL (80.0-94.0); Platelet Count 184 10^3/uL (130-400); Red Blood Cell Count 4.64 10^6/uL (4.70-6.10); Red Cell Dist. Width 13.2 % (11.5-14.5); White Blood Cell Count 7.8 10^3/uL (4.8-10.8)
[2024-09-27 09:02] LABS: ALT (SGPT) 52 U/L (0-50); AST (SGOT) 27 U/L (17-59); Albumin 4.2 g/dl (3.5-5.0); Alkaline Phosphatase 61 U/L (38-126); Blood Urea Nitrogen 11 mg/dl (9-20); Calcium 8.7 mg/dl (8.4-10.2); Carbon Dioxide 24 mmol/L (22-30); Chloride 109 mmol/L (98-107); Estimated Creatinine Clearance > 125 ml/min; Glucose 87 mg/dl (70-99); Sodium 141 mmol/L (135-145); Total Bilirubin 2.6 mg/dl (0.2-1.3); Total Protein 6.8 g/dl (6.3-8.2); eGFR > 60.00
--- NOTE | 2024-09-27 10:27 | PTCARENOTE ---
Patient able to make needs known and communicate effectivly with me. PT is aaox3. vss complainted of 8-9/10 sharp pain in left flank area. pt given IV dilaudid with improved pain. Pre op check list completed as much as possible. H+P on chart, no
consent on chart, OR Nurse was notified prior to sending, no CXR ordered no EKG ordered. is at bedside. PT sent to OR and will await his return
--- NOTE | 2024-09-27 11:58 | W.PN.HOSP.TC ---
Today's Communication/Plan
-
Assessment / Plan
Assessment / Plan
NAD
Scleral Anicteric
MMM
No JVD
CTABL
RRR, S1/S2
Soft, NT, ND, BS+
Left-sided CVA tenderness
Warm, Dry
AAOx3
Calm
Left-sided urethral stone with mild left hydroureteronephrosis
Plan for urology to place urethral stent
IV fluids
Flomax
Antibiotics
Follow-up urine culture
Anticipated Discharge: Within 24 hours
Subjective/Interval History
-
Date of Service: September 27, 2024
Seen and examined. No new complaints. No acute overnight events.
Continues to have left-sided flank pain
Not urinating as much as he was yesterday
Objective Data
-
Labs:
Laboratory Results
09/27/24
08:04
WBC 7.8
Hgb 14.5
Hct 40.9
Plt Count 184
Sodium 141 D
Potassium 4.0
Chloride 109 H
Carbon Dioxide 24
BUN 11
Creatinine 0.8
Glucose 87
Calcium 8.7
Total Bilirubin 2.6 H
AST 27
ALT 52 H
Alkaline Phosphatase 61
Vital Signs:
Vital Signs
Temp Pulse Resp BP Pulse Ox
97.0 F 80 16 114/73 98
09/27/24 11:50 09/27/24 07:00 09/27/24 07:00 09/27/24 07:00 09/27/24 11:50
I&O
09/26/24 09/27/24 09/28/24
06:59 06:59 06:59
Intake Total 1320 / 1320
Balance 1320 / 1320
--- NOTE | 2024-09-27 12:06 | CM ---
Addendum entered by Bijal Bah 09/27/24 14:10:
patient plan is for discharge home with follow as needed at [facility]
Original Note:
Patient seen at bedside on 3 with , daughter. Patient for surgery today. Patient followed by [facility] and plan is for discharge home with no needs. Patient pharmacy is the [facility]. Patient may benefit from referral to [facility].
will continue to follow for discharge planning needs.
Plan; home with family supports following with [facility]
--- NOTE | 2024-09-27 12:15 | W.DCSUMMARY ---
Discharge Summary
Discharge Data
Date of Admission: 09/26/24
Date of Discharge: 09/27/24
-
Pending Results: No
Hospital Course
39-year-old male with no significant past medical history
Presented with left-sided flank pain a left-sided ureteral calculus with mild hydroureteronephrosis analgesics Flomax. Evaluated by urology and taken to the OR for extraction and stent placement. Will continue antibiotics until outpatient setting
with cefdinir 300 mg twice a day for total of 10 days. Follow-up with outpatient urology within 2 weeks.
CTAP
IMPRESSION:
6 mm proximal left ureteral calculus with associated mild left hydroureteronephrosis.
Hepatomegaly and diffuse hepatic steatosis.
Discharge Plan
-
Patient Disposition: Home (Routine Discharge)
Discharge Diagnosis/Procedures: Left urethral stone
Condition: Fair
Diet: As tolerated
Activity: As tolerated
Activity Restrictions/Additional Instructions:
Presented with left-sided flank pain a left-sided ureteral calculus with mild hydroureteronephrosis analgesics Flomax. Evaluated by urology and taken to the OR for extraction and stent placement. Will continue antibiotics until outpatient setting
with cefdinir 300 mg twice a day for total of 10 days. Follow-up with outpatient urology within 2 weeks.
CTAP
IMPRESSION:
6 mm proximal left ureteral calculus with associated mild left hydroureteronephrosis.
Hepatomegaly and diffuse hepatic steatosis.
Referrals:
Cedric Uribe MD [Active, Urology]
Referral Note: you have a stent The stone is gone. Expect urinary frequency and urgency until stent removed. Call Dr Claudio er [phone] to schedule stent removal
NONE,* [Family Provider, Internal Medicine]
Prescriptions:
New
cefdinir 300 mg capsule
300 mg PO BID Qty: 20 0RF
Continued
ondansetron 4 mg tablet,disintegrating
4 mg PO Q6HPRN PRN (Reason: nausea and vomiting)
naproxen 500 mg tablet
500 mg PO BIDPRN PRN (Reason: mild pain)
tamsulosin [Flomax] 0.4 mg capsule
0.4 mg PO HS
Discharge Orders:
Discharge Patient (As Directed); Ordered 09/27/24
Ordered By: Max Figueroa
Discharge Date and Time
Print Language: WELSH
[2024-09-27] MEDS: ROXICODONE 5 MG PO (15:07)
[2024-09-27] MEDS: ROCEPHIN 1000 MG IV (15:08)
[2024-09-27] MEDS: STERILE WATER FOR INJECTION 10 ML IV (15:08)
[2024-09-27] MEDS: SENOKOT-S 1 TABLET PO (15:12)
--- NOTE | 2024-09-27 15:28 | PTCARENOTE ---
PT received from PACU. they informed he he is having blood in urine that is 'normal' after this procedure. VSS pt complained of difficulty voiding with minor pain. PT's pain worsened to 7-8 sharp from left flank area that wrapped around the front.
Pt given oxycodone with good results. Dr Uribe notified and sated it was normal and not to worry about it. Pt asking to go home one hour after the medication works. Pt did have bloody urine x3 punch color x3 since surgery with some painful
urination, i did not mention this to Dr Uribe, so i sent Dr Uribe a new tiger text with this missing information. will update what he states in my next note. Pt is currently resting in room, DR Uribe responded 'This is all expected. He
does not have to be in the hospital unless he has fever or chills.' Pt is without fever and chills Pt did receive last dose of IV antibiotic
== END 2024-09-27 17:18 | disposition home or self-care (01) | DRG 661 ==
LOC: 3 WEST ACU 15:23
PROVIDERS: Emergency Medicine; Registered Nurse; ADMITTING PHYSICIAN Internal Medicine; ATTENDING PHYSICIAN Hospitalist; CONSULT PHYSICIAN Specialist; EMERGENCY PHYSICIAN Student in an Organized Health Care Education/Training Program
PROC: 0TC78ZZ Extirpation of Matter from Left Ureter, Via Natural or Artificial Opening Endoscopic (ICD-10-PCS; 2024-09-27)
PROC: 0T778DZ Dilation of Left Ureter with Intraluminal Device, Via Natural or Artificial Opening Endoscopic (ICD-10-PCS; 2024-09-27)
DX: N13.2 Hydronephrosis with renal and ureteral calculous obstruction (principal); K76.0 Fatty (change of) liver, not elsewhere classified; R16.0 Hepatomegaly, not elsewhere classified; Z60.3 Acculturation difficulty; Z87.442 Personal history of urinary calculi
CPT/HCPCS: 74018; 76000; 80053; 81003; 81015; 82365; 83605; 85025; 85027; 87040; 87086; 96361; 96374; 99285; 99406; C2617